=== PATIENT | female | born 1975 | race African-American/Black ===

== ENCOUNTER 2020-04-04 10:07 | Observation (INO) ==
[2020-04-04] MEDS ORDERED: METOCLOPRAMIDE 10 MG/2 ML VIAL IV STA (10:43)
[2020-04-04] MEDS ORDERED: KETOROLAC 30 MG/1 ML VIAL IV STA (10:44)
[2020-04-04 11:26] LABS: Basophils # 0.1 10*3/uL (0.0-0.2); Basophils % 0.8 % (0.0-0.8); Eosinophils # 0.2 10*3/uL (0.0-0.87); Eosinophils % 1.8 % (0.00-10.9); Hematocrit 41.8 VOL% (35.7-47.0); Hemoglobin 13.7 GM/DL (12.0-16.0); Immature Granulocytes % 0.3 %; Immature Granulocytes Absolute 0.04 #; Lymphocytes # 3.3 10*3/uL (1.4-4.0); Lymphocytes % 25.2 % (21.3-54.2); Mean Corpuscular HGB Conc 32.8 GM/DL (32-36); Mean Corpuscular Volume 91.7 FL (87-102); Mean Platelet Volume 10.3 FL (9.6-12.0); Monocytes % 9.9 % (1.7-12.7); Platelet Count 328 T/CUMM (130-400); Red Blood Count 4.56 MC/CUMM (3.8-5.5); Red Cell Distribution Width 14.9 % (9.3-17.3); White Blood Count 13.3 T/CUMM (4-12)
[2020-04-04 11:35] LABS: Apearance,Urine CLOUDY (Clear); Bilirubin,Urine Negative (Negative); Blood, Urine Small mg/dL (Negative); Glucose,Urine (UA) Negative (Negative); Ketones,Urine 20 mg/dL (Negative); Mucus,Urine Many /LPF (Occasional); Nitrite,Urine Negative (Negative); Protein,Urine 30 MG/DL; RBC,Urine 3 /HPF (0-4); Squamous Epithelial Cell,Urine Few /HPF (0-10); Urine Color Yellow (Yellow); Urine Specific Gravity 1.029 (1.001-1.035); WBC,Urine 3 /HPF (0-6)
[2020-04-04 11:43] LABS: Albumin 3.7 G/DL (3.4-5.0); Bilirubin,Total 0.5 MG/DL (0.2-1.0); Calcium 9.4 MG/DL (8.5-10.1); Osmolality,Calculated 264.5 MOS/KG (273-304); Total Protein 8.5 G/DL (6.4-8.3)
[2020-04-04 12:16] LABS: Anisocytosis 1+; Macrocytosis 1+; Platelet Estimate Normal
[2020-04-04] MEDS ORDERED: POTASSIUM CHLORIDE 20 MEQ TABLET PO STA (12:25)
[2020-04-04] MEDS ORDERED: SODIUM CHLORIDE 0.9% 1,000 ML IV STA (12:53)
[2020-04-04] MEDS ORDERED: PIPERACILLIN/TAZOBACTAM 3,375 MG in SODIUM CHLORIDE 0.9% 100 ML IV STA (13:16)
[2020-04-04] MEDS ORDERED: ONDANSETRON 4 MG/2 ML VIAL IV PRN (13:26)
[2020-04-04] MEDS: SODIUM CHLORIDE 0.9% 1,000 ML IV SCH ×2 (16:28→21:30)
[2020-04-04] MEDS: PIPERACILLIN/TAZOBACTAM 3,375 MG in SODIUM CHLORIDE 0.9% 100 ML IV SCH (21:10)
[2020-04-05] MEDS: PIPERACILLIN/TAZOBACTAM 3,375 MG in SODIUM CHLORIDE 0.9% 100 ML IV SCH ×2 (05:22→14:52)
[2020-04-05] MEDS: SODIUM CHLORIDE 0.9% 1,000 ML IV SCH ×2 (05:29→12:29)
[2020-04-05 06:12] LABS: Basophils # 0.1 10*3/uL (0.0-0.2); Basophils % 0.7 % (0.0-0.8); Eosinophils # 0.2 10*3/uL (0.0-0.87); Eosinophils % 1.9 % (0.00-10.9); Hematocrit 39.5 VOL% (35.7-47.0); Hemoglobin 12.9 GM/DL (12.0-16.0); Immature Granulocytes % 0.4 %; Immature Granulocytes Absolute 0.05 #; Lymphocytes # 4.6 10*3/uL (1.4-4.0); Lymphocytes % 36.8 % (21.3-54.2); Mean Corpuscular HGB Conc 32.7 GM/DL (32-36); Mean Corpuscular Volume 91.9 FL (87-102); Mean Platelet Volume 10.3 FL (9.6-12.0); Neutrophils % 51.2 % (38.7-73.9); Platelet Count 316 T/CUMM (130-400); Red Cell Distribution Width 15.1 % (9.3-17.3); White Blood Count 12.5 T/CUMM (4-12)
[2020-04-05 06:33] LABS: Albumin 3.3 G/DL (3.4-5.0); Bilirubin,Total 0.7 MG/DL (0.2-1.0); Calcium 8.3 MG/DL (8.5-10.1); Osmolality,Calculated 265.5 MOS/KG (273-304); Total Protein 7.7 G/DL (6.4-8.3)
[2020-04-05] MEDS: lisinopriL 10 MG TABLET PO SCH (08:07)
[2020-04-05] MEDS: carvediloL 25 MG TABLET PO SCH ×2 (08:07→16:53)
[2020-04-05] MEDS: CHLORTHALIDONE 25 MG TABLET PO SCH (08:07)
[2020-04-05] MEDS: POTASSIUM CHLORIDE RIDER 10 MEQ in PREMIX 1 EACH IV PRN ×4 (08:07→20:30)
[2020-04-05] MEDS: DILTIAZEM CD 120 MG CAPSULE PO SCH (08:07)
[2020-04-05] MEDS ORDERED: TISSUE ADHESIVE 1 EACH APPLICATOR TOP ONE (08:11)
[2020-04-05] MEDS ORDERED: LIDOCAINE 1%/EPI INJ 20 ML VIAL ONE (08:12)
[2020-04-05 08:20] LABS: Band Neutrophils 1 % (0-10); Eosinophils 3 % (0-10); Lymphocytes 37 % (20-55); Platelet Estimate Normal; Segmented Neutrophils 46 % (50-85); Total Cells Counted 100
[2020-04-05 08:21] LABS: Anisocytosis Slight; Macrocytosis 1+
[2020-04-05] MEDS: LACTATED RINGERS 1,000 ML IV SCH ×2 (08:25→10:49)
[2020-04-05] MEDS ORDERED: ceFAZolin 1,000 MG VIAL ONE (08:52)
[2020-04-05] MEDS ORDERED: SUGAMMADEX 200 MG/2 ML VIAL IV ONE (09:43)
[2020-04-05] MEDS ORDERED: ONDANSETRON 4 MG/2 ML VIAL ONE ×2 (09:59→10:02)
[2020-04-05] MEDS ORDERED: HYDROmorphone 2 MG/1 ML VIAL ONE (09:59)
[2020-04-05] MEDS: HYDROmorphone 2 MG/1 ML VIAL IV PRN ×4 (10:00→10:20)
[2020-04-05] MEDS ORDERED: LIDOCAINE 2% 5 ML VIAL ONE (10:02)
[2020-04-05] MEDS ORDERED: CALCIUM CHLORIDE 1,000 MG/10 ML VIAL IV ONE (10:02)
[2020-04-05] MEDS ORDERED: DEXAMETHASONE 4 MG/1 ML VIAL ONE (10:02)
[2020-04-05] MEDS ORDERED: propofoL 200 MG/20 ML VIAL IV ONE (10:02)
[2020-04-05] MEDS ORDERED: GLYCOPYRROLATE 0.4 MG/2 ML VIAL ONE (10:02)
[2020-04-05] MEDS ORDERED: PHENYLEPHRINE 1 MG/10 ML SYRINGE IV ONE (10:02)
[2020-04-05] MEDS ORDERED: SEVOFLURANE 1 UNIT/15 MINUTE INH ONE (10:02)
[2020-04-05] MEDS ORDERED: SUCCINYLCHOLINE 200 MG/10 ML VIAL ONE (10:03)
[2020-04-05] MEDS ORDERED: ROCURONIUM 100 MG/10 ML VIAL IV ONE (10:03)
[2020-04-05] MEDS ORDERED: NEOSTIGMINE 10 MG/10 ML VIAL ONE (10:03)
[2020-04-05] MEDS ORDERED: POTASSIUM CHLORIDE 20 MEQ/10 ML VIAL ONE (10:03)
[2020-04-05] MEDS ORDERED: ONDANSETRON 4 MG/2 ML VIAL IV PRN (10:07)
[2020-04-05] MEDS ORDERED: diphenhydrAMINE CAP 25 MG CAPSULE PO ONE (23:55)
[2020-04-06] MEDS: POTASSIUM CHLORIDE RIDER 10 MEQ in PREMIX 1 EACH IV PRN ×6 (00:43→12:00)
[2020-04-06] MEDS: PIPERACILLIN/TAZOBACTAM 3,375 MG in SODIUM CHLORIDE 0.9% 100 ML IV SCH ×2 (03:55→12:48)
[2020-04-06] MEDS: SODIUM CHLORIDE 0.9% 1,000 ML IV SCH ×3 (07:40→13:53)
[2020-04-06] MEDS: DILTIAZEM CD 120 MG CAPSULE PO SCH (08:38)
[2020-04-06] MEDS: carvediloL 25 MG TABLET PO SCH (08:38)
[2020-04-06] MEDS: CHLORTHALIDONE 25 MG TABLET PO SCH (08:38)
[2020-04-06] MEDS: lisinopriL 10 MG TABLET PO SCH (08:38)
[2020-04-06 12:06] VITALS: BP 120/49
== END 2020-04-06 14:17 | disposition home or self-care (01) ==
LOC: N.ED 10:07 → INTOOBSV 13:26 → N.EDINP 13:26 → N.3E 15:14
PROVIDERS: ADMIT Surgery; ATTEND Surgery
PROC: LAPCHOL (2020-04-05 08:24)

== ENCOUNTER 2020-06-15 19:54 | Inpatient (IN) ==
[2020-06-15 21:17] LABS: Basophils # 0.1 10*3/uL (0.0-0.2); Basophils % 0.4 % (0.0-0.8); Eosinophils # 0.2 10*3/uL (0.0-0.87); Eosinophils % 1.3 % (0.00-10.9); Hematocrit 38.5 VOL% (35.7-47.0); Hemoglobin 12.9 GM/DL (12.0-16.0); Immature Granulocytes % 0.4 %; Immature Granulocytes Absolute 0.06 #; Lymphocytes # 2.4 10*3/uL (1.4-4.0); Lymphocytes % 17.8 % (21.3-54.2); Mean Corpuscular HGB Conc 33.5 GM/DL (32-36); Mean Corpuscular Volume 89.3 FL (87-102); Mean Platelet Volume 10.3 FL (9.6-12.0); Monocytes % 6.9 % (1.7-12.7); Neutrophils % 73.2 % (38.7-73.9); Platelet Count 269 T/CUMM (130-400); Red Blood Count 4.31 MC/CUMM (3.8-5.5); Red Cell Distribution Width 15.8 % (9.3-17.3); White Blood Count 13.5 T/CUMM (4-12)
[2020-06-15 21:33] LABS: Apearance,Urine Slightly Hazy (Clear); Bilirubin,Urine Negative (Negative); Blood, Urine Negative (Negative); Glucose,Urine (UA) Negative (Negative); Hyaline Casts,Urine 1 /LPF (0-3); Ketones,Urine 5 mg/dL (Negative); Mucus,Urine Many /LPF (Occasional); Nitrite,Urine Negative (Negative); Protein,Urine 30 MG/DL; RBC,Urine 1 /HPF (0-4); Squamous Epithelial Cell,Urine Occasional /HPF (0-10); Urine Color Yellow (Yellow); Urine Specific Gravity 1.027 (1.001-1.035); WBC,Urine 1 /HPF (0-6)
[2020-06-15 21:34] LABS: Albumin 3.5 G/DL (3.4-5.0); Bilirubin,Total 0.5 MG/DL (0.2-1.0); Calcium 8.9 MG/DL (8.5-10.1); Osmolality,Calculated 274.8 MOS/KG (273-304); Total Protein 8.1 G/DL (6.4-8.3)
[2020-06-15] MEDS ORDERED: ALUM/MAG/SIMETH/LIDO VISC 1:1 30 ML BOTTLE PO STA (23:40)
[2020-06-15] MEDS ORDERED: POTASSIUM CHLORIDE RIDER 20 MEQ in PREMIX 1 EACH IV STA (23:41)
[2020-06-15] MEDS ORDERED: hydrALAZINE 20 MG/1 ML VIAL IV STA (23:42)
[2020-06-15] MEDS ORDERED: SODIUM CHLORIDE 0.9% 500 ML IV STA (23:42)
[2020-06-15] MEDS ORDERED: PANTOPRAZOLE 40 MG VIAL IV STA (23:42)
[2020-06-15] MEDS ORDERED: HYDROmorphone 2 MG/1 ML VIAL IV STA (23:42)
[2020-06-15] MEDS ORDERED: ONDANSETRON 4 MG/2 ML VIAL IV STA (23:42)
[2020-06-16] MEDS: POTASSIUM CHLORIDE RIDER 10 MEQ in PREMIX 1 EACH IV SCH ×2 (00:15→02:30)
[2020-06-16 00:42] LABS: Amylase 64 U/L (25-115); Troponin I < 0.015 NG/ML (0.00-0.045)
[2020-06-16] MEDS ORDERED: ACETAMINOPHEN 325 MG TABLET PO PRN (02:15)
[2020-06-16] MEDS: ONDANSETRON 4 MG/2 ML VIAL IV PRN ×2 (02:30→07:26)
[2020-06-16] MEDS ORDERED: PIPERACILLIN/TAZOBACTAM 3,375 MG VIAL IV ONE ×2 (02:32→11:23)
[2020-06-16] MEDS: PIPERACILLIN/TAZOBACTAM 3,375 MG in SODIUM CHLORIDE 0.9% 100 ML IV SCH ×3 (02:45→18:12)
[2020-06-16] MEDS: POTASSIUM CHLORIDE INJ 10 MEQ in SODIUM CHLORIDE 0.9% 1,000 ML IV SCH ×2 (04:00→14:05)
[2020-06-16] MEDS: HYDROmorphone 2 MG/1 ML VIAL IV PRN (04:00)
[2020-06-16 04:13] LABS: Basophils % 0.2 % (0.0-0.8); Eosinophils % 0.2 % (0.00-10.9); Hematocrit 34.1 VOL% (35.7-47.0); Hemoglobin 11.4 GM/DL (12.0-16.0); Immature Granulocytes % 0.4 %; Immature Granulocytes Absolute 0.05 #; Lymphocytes # 1.9 10*3/uL (1.4-4.0); Lymphocytes % 14.3 % (21.3-54.2); Mean Corpuscular HGB Conc 33.4 GM/DL (32-36); Mean Corpuscular Volume 88.6 FL (87-102); Mean Platelet Volume 10.6 FL (9.6-12.0); Monocytes % 6.2 % (1.7-12.7); Neutrophils % 78.7 % (38.7-73.9); Platelet Count 219 T/CUMM (130-400); Red Blood Count 3.85 MC/CUMM (3.8-5.5); Red Cell Distribution Width 15.8 % (9.3-17.3); White Blood Count 12.9 T/CUMM (4-12)
[2020-06-16 04:36] LABS: Bilirubin,Total 0.5 MG/DL (0.2-1.0); Calcium 8.5 MG/DL (8.5-10.1); Osmolality,Calculated 275.7 MOS/KG (273-304)
[2020-06-16] MEDS: PANTOPRAZOLE 40 MG VIAL IV SCH (08:58)
[2020-06-16] MEDS: DILTIAZEM CD 120 MG CAPSULE PO SCH (14:11)
[2020-06-16] MEDS: lisinopriL 10 MG TABLET PO SCH (14:11)
[2020-06-16] MEDS: POTASSIUM CHLORIDE 20 MEQ TABLET PO SCH (14:11)
[2020-06-16] MEDS ORDERED: hydrALAZINE 20 MG/1 ML VIAL IV PRN ×2 (17:58→18:03)
[2020-06-16] MEDS: carvediloL 25 MG TABLET PO SCH (21:16)
[2020-06-17] MEDS: POTASSIUM CHLORIDE INJ 10 MEQ in SODIUM CHLORIDE 0.9% 1,000 ML IV SCH ×2 (02:57→08:01)
[2020-06-17] MEDS: PIPERACILLIN/TAZOBACTAM 3,375 MG in SODIUM CHLORIDE 0.9% 100 ML IV SCH ×3 (02:57→20:23)
[2020-06-17 05:26] LABS: Basophils # 0.1 10*3/uL (0.0-0.2); Basophils % 0.6 % (0.0-0.8); Eosinophils # 0.3 10*3/uL (0.0-0.87); Hematocrit 31.2 VOL% (35.7-47.0); Hemoglobin 10.4 GM/DL (12.0-16.0); Immature Granulocytes % 0.2 %; Immature Granulocytes Absolute 0.02 #; Lymphocytes # 2.7 10*3/uL (1.4-4.0); Mean Corpuscular HGB Conc 33.3 GM/DL (32-36); Mean Corpuscular Volume 88.6 FL (87-102); Mean Platelet Volume 10.5 FL (9.6-12.0); Neutrophils % 60.2 % (38.7-73.9); Platelet Count 224 T/CUMM (130-400); Red Blood Count 3.52 MC/CUMM (3.8-5.5); Red Cell Distribution Width 16.1 % (9.3-17.3)
[2020-06-17 05:48] LABS: Calcium 7.9 MG/DL (8.5-10.1); Osmolality,Calculated 281.1 MOS/KG (273-304)
[2020-06-17] MEDS: POTASSIUM CHLORIDE RIDER 10 MEQ in PREMIX 1 EACH IV PRN ×2 (07:37→09:06)
[2020-06-17] MEDS ORDERED: SODIUM CHLORIDE 0.9% IV SCH (08:30)
[2020-06-17] MEDS ORDERED: POTASSIUM CHLORIDE IV SCH (08:30)
[2020-06-17] MEDS ORDERED: CHLORTHALIDONE 25 MG TABLET PO SCH (09:00)
[2020-06-17] MEDS: DILTIAZEM CD 120 MG CAPSULE PO SCH (09:05)
[2020-06-17] MEDS: carvediloL 25 MG TABLET PO SCH ×2 (09:05→20:24)
[2020-06-17] MEDS: lisinopriL 10 MG TABLET PO SCH (09:06)
[2020-06-17] MEDS: POTASSIUM CHLORIDE 20 MEQ TABLET PO SCH (09:06)
[2020-06-17] MEDS ORDERED: HYDROmorphone 2 MG/1 ML VIAL IV PRN (09:28)
[2020-06-17] MEDS: HYDROmorphone 2 MG/1 ML VIAL IV PRN (09:56)
[2020-06-17] MEDS: PANTOPRAZOLE 40 MG VIAL IV SCH (09:58)
[2020-06-17] MEDS ORDERED: POTASSIUM PHOSPHATE 15 MMOL in SODIUM CHLORIDE 0.9% 250 ML IV ONE (12:30)
[2020-06-17] MEDS: POTASSIUM CHLORIDE INJ 40 MEQ in LACTATED RINGERS 1,000 ML IV SCH (20:22)
[2020-06-18] MEDS: PIPERACILLIN/TAZOBACTAM 3,375 MG in SODIUM CHLORIDE 0.9% 100 ML IV SCH (05:36)
[2020-06-18 07:47] LABS: Basophils # 0.1 10*3/uL (0.0-0.2); Basophils % 0.5 % (0.0-0.8); Eosinophils # 0.4 10*3/uL (0.0-0.87); Eosinophils % 3.7 % (0.00-10.9); Hematocrit 31.7 VOL% (35.7-47.0); Hemoglobin 10.7 GM/DL (12.0-16.0); Immature Granulocytes % 0.2 %; Immature Granulocytes Absolute 0.02 #; Lymphocytes # 2.6 10*3/uL (1.4-4.0); Lymphocytes % 27.3 % (21.3-54.2); Mean Corpuscular HGB Conc 33.8 GM/DL (32-36); Mean Corpuscular Volume 89.3 FL (87-102); Mean Platelet Volume 10.1 FL (9.6-12.0); Monocytes % 11.7 % (1.7-12.7); Neutrophils % 56.6 % (38.7-73.9); Platelet Count 230 T/CUMM (130-400); Red Blood Count 3.55 MC/CUMM (3.8-5.5); White Blood Count 9.6 T/CUMM (4-12)
[2020-06-18 08:02] LABS: Calcium 8.3 MG/DL (8.5-10.1); Osmolality,Calculated 277.3 MOS/KG (273-304)
[2020-06-18] MEDS ORDERED: POTASSIUM CHLORIDE RIDER 10 MEQ in PREMIX 1 EACH IV SCH (08:30)
[2020-06-18] MEDS: DILTIAZEM CD 120 MG CAPSULE PO SCH (09:59)
[2020-06-18] MEDS: lisinopriL 10 MG TABLET PO SCH (09:59)
[2020-06-18] MEDS: carvediloL 25 MG TABLET PO SCH ×2 (09:59→20:44)
[2020-06-18] MEDS: POTASSIUM CHLORIDE 20 MEQ TABLET PO SCH ×3 (09:59→14:43)
[2020-06-18] MEDS: CIPROFLOXACIN 500 MG TABLET PO SCH ×2 (09:59→20:44)
[2020-06-18] MEDS: PANTOPRAZOLE 40 MG VIAL IV SCH (10:11)
[2020-06-18] MEDS: metroNIDAZOLE 500 MG TABLET PO SCH ×2 (14:43→20:44)
[2020-06-18] MEDS: POTASSIUM CHLORIDE INJ 40 MEQ in LACTATED RINGERS 1,000 ML IV SCH ×2 (20:46→20:47)
[2020-06-19 08:05] LABS: Calcium 8.5 MG/DL (8.5-10.1); Osmolality,Calculated 275.4 MOS/KG (273-304)
[2020-06-19] MEDS ORDERED: POTASSIUM CHLORIDE 20 MEQ TABLET PO PRN (08:21)
[2020-06-19] MEDS: CIPROFLOXACIN 500 MG TABLET PO SCH (09:44)
[2020-06-19] MEDS: DILTIAZEM CD 120 MG CAPSULE PO SCH (09:44)
[2020-06-19] MEDS: metroNIDAZOLE 500 MG TABLET PO SCH (09:44)
[2020-06-19] MEDS: POTASSIUM CHLORIDE 20 MEQ TABLET PO SCH ×3 (09:44→12:45)
[2020-06-19] MEDS: lisinopriL 10 MG TABLET PO SCH (09:45)
[2020-06-19] MEDS: carvediloL 25 MG TABLET PO SCH (09:45)
[2020-06-19 11:19] VITALS: BP 144/87
== END 2020-06-19 15:25 | disposition home or self-care (01) | DRG 390 ==
LOC: N.ED 19:54 → N.EDINP 19:54 → N.3E 06-16 16:58
PROVIDERS: ADMIT Surgery; ATTEND Surgery